=== PATIENT | male | born 1980 | race Caucasian/White ===

== ENCOUNTER 2021-07-07 20:55 | Emergency (ER) | payer BC, SELFPAY ==
--- NOTE | ~2021-07-07 | XR_ITS ---
EXAMINATION: XR chest 1V CLINICAL INFORMATION: Reason for Exam COUGH WITH HEAVY MUCOUS COMPARISON: None TECHNIQUE: XR chest 1V Tubes and lines: None Lungs and pleura: Mild pulmonary interstitial opacification concerning for possible atypical infection, no dense focal consolidation pneumonia. Heart and mediastinum: The mediastinum is within normal limits.. Bones/soft tissue: Skeletal structures included are normal for patient's age. XR/XR chest 1V IMPRESSION: Mild interstitial opacification concerning for possible atypical infection, such as viral. No lobar consolidation pneumonia.
[2021-07-07 23:16] VITALS: BP 137/77; PULSE 80; RESP 16; TEMP 36.9; O2SAT 94; BMI 47.3
[2021-07-07 23:49] LABS: COVID-19 Test Negative (Negative)
--- NOTE | 2021-07-08 00:06 | ED.GENADULT ---
HPI - General Adult General Chief complaint: General Medical Stated complaint: Flu like symptoms Time Seen by Provider: 07/08/21 00:06 History of Present Illness HPI narrative: Patient is 40 years old presented with coughing congestion upper respiratory symptoms that is ongoing for about 5 days. Patient is a smoker. Not vaccinated for COVID. Positive generalized malaise. Related Data Previous Rx's Medication Instructions Recorded doxycycline hyclate 100 mg capsule 100 mg PO BID 7 Days #14 cap 07/08/21 ibuprofen 400 mg tablet 400 mg PO Q6H PRN #20 tab 07/08/21 Allergies Allergy/AdvReac Type Severity Reaction Status Date / Time No Known Allergies Allergy Verified 07/07/21 23:20 Review of Systems Review of Systems: Positive coughing upper respiratory symptoms positive generalized malaise positive history of smoking Yes all other systems are reviewed and are negative [facility] Past Medical History Attestation statement: The following information was validated with the patient. Social History Social History Advance Directives: No Advance Directives Information Provided: No Physical Exam Vital Signs: Vital Signs: Last Vital Signs Temp 98.5 F 07/07/21 23:16 Pulse 80 07/07/21 23:16 Resp 16 07/07/21 23:16 BP 137/77 07/07/21 23:16 Pulse Ox 94 07/07/21 23:16 Body Mass Index 47.3 Appearance: Alert. Oriented X3. No acute distress. Eyes: Pupils equal, round and reactive to light. ENT: Pharynx normal. Neck: Normal inspection. Neck supple. No lymph nodes noted. No crepitus CVS: Normal heart rate and rhythm. Pulses normal. Normal S1 and S2 Respiratory: No respiratory distress. Breath sounds normal. No Wheezing. No rales Abdomen: Soft and nontender. No rigidity. No distention. good BS x4 Skin: Skin warm and dry. Normal skin color. Normal skin turgor. Extremities: No lower extremity edema. Neurovascular intact to all extremities. No Lacerations. No Rash Neuro: Oriented X 3. No motor deficit. No sensory deficit. Moving all extermities. No slurred speech Medical Decision Making MDM Narrative Medical decision making narrative: Patient well appearing not acute distress. Positive coughing upper respiratory symptoms. We will go and give antibiotics. Will go ahead and have patient follow-up on an outpatient basis. Chest x-ray shows signs of atypical pneumonia. Currently in stable condition. Lab Data Lab results reviewed: Yes I reviewed the patient's lab results. Labs: Lab Results 07/07/21 Range/Units 23:22 COVID-19 ([facility]) Negative (Negative) COVID-19 Clin Com See Note Discharge Plan Discharge Clinical Impression: Pneumonia Patient Disposition: Home, Self-Care Instructions: Pneumonia (ED) Prescriptions: New doxycycline hyclate 100 mg capsule 100 mg PO BID 7 Days Qty: 14 RF: 0 ibuprofen 400 mg tablet 400 mg PO Q6H PRN (Reason: pain) Qty: 20 RF: 0 Referrals: Physician,Nonstaff [Primary Care Provider] - 2 days
[2021-07-08 00:41] VITALS: PULSE 80; RESP 16; O2SAT 96
== END 2021-07-08 00:42 | disposition home or self-care (01) ==
PROVIDERS: Emergency Provider Emergency Medicine Emergency Medical Services
DX: J18.9 Pneumonia, unspecified organism (principal); F17.200 Nicotine dependence, unspecified, uncomplicated; Z20.822 Contact with and (suspected) exposure to COVID-19
CPT/HCPCS: 36415; 71045; 87635; 99283; 99284

== ENCOUNTER 2021-07-19 16:42 | Emergency (ER) | payer BC, SELFPAY ==
--- NOTE | ~2021-07-19 | XR_ITS ---
EXAMINATION: XR CHEST CLINICAL INFORMATION: Pain COMPARISON: None TECHNIQUE: Frontal view of the chest was obtained. FINDINGS: No significant abnormality is noted involving the heart, lungs, mediastinum, bony thorax or soft tissues. XR/XR chest 1V IMPRESSION: Unremarkable examination.
--- NOTE | ~2021-07-19 | XR_ITS ---
EXAMINATION: XR HAND, RIGHT CLINICAL INFORMATION: Pain COMPARISON: None TECHNIQUE: PA, lateral, and oblique views of the right hand. FINDINGS: The bones and soft tissues are normal. No fracture. Alignment is anatomic. Joint spaces are maintained. No erosions or soft tissue calcifications. XR/XR hand wrist RT IMPRESSION: Normal right hand.
[2021-07-19 17:01] VITALS: BP 123/63; PULSE 81; RESP 18; TEMP 36.6; O2SAT 98; BMI 45.3
[2021-07-19 17:21] LABS: COVID-19 Test Positive (Negative)
--- NOTE | 2021-07-19 17:34 | ED.GENADULT ---
HPI - General Adult General Chief complaint: General Medical Stated complaint: ?right hand broken,unable to taste sob Time Seen by Provider: 07/19/21 17:34 History of Present Illness HPI narrative: Patient complains with 2 complaints, 1st complaint is he has had an ongoing upper respiratory infection for 2 weeks He was here a week ago with an x-ray that showed possibility of atypical or viral pneumonia but a negative COVID test and was discharged He now complains that he is decreased sense of taste as well as ongoing minor cough and some feeling of shortness of breath as well Second complaint is he has right hand pain after accidentally hitting it against a radiator Related Data Previous Rx's Medication Instructions Recorded dextromethorphan HBr 15 mg/5 mL 15 mg (5 mL) PO Q8H PRN #118 ml 07/08/21 oral liquid (Tussin Cough (DM only)) doxycycline hyclate 100 mg capsule 100 mg PO BID 7 Days #14 cap 07/08/21 ibuprofen 400 mg tablet 400 mg PO Q6H PRN #20 tab 07/08/21 Allergies Allergy/AdvReac Type Severity Reaction Status Date / Time No Known Allergies Allergy Verified 07/07/21 23:20 Review of Systems Review of Systems: Positive for cough, decreased sense of taste, shortness of breath, and right hand pain Negatives are no fever no chills no dizziness or weakness no fainting no feeling faint no headache no neck pain no stiff neck no chest pain no pain with a deep breath no sore throat no abdominal pain no nausea vomiting or diarrhea no calf pain no lower leg swelling no skin rash no numbness weakness or tingling Yes all other systems are reviewed and are negative PMFSH Past Medical History Source: nursing notes reviewed Social History Social History Advance Directives: No Advance Directives Information Provided: Yes Physical Exam Vital Signs: Vital Signs: Last Vital Signs Temp 98 F 07/19/21 17:01 Pulse 81 07/19/21 17:01 Resp 18 07/19/21 17:01 BP 123/63 07/19/21 17:01 Pulse Ox 98 07/19/21 17:01 BMI result Body Mass Index 45.3 General appearance no acute distress The eyes no redness or discharge The neck is supple The chest is clear to auscultation bilateral The heart no murmur Extremities the right hand has some dorsal tenderness and mild swelling, there is some redness and swelling around the MCP joint and proximal 4th dorsal finger, no evidence of tendon limitation on extension or flexion, the skin is intact with no laceration and sensation and motor are intact Lower extremities there is no calf swelling or tenderness Skin no rash Neuro no focal motor sensory deficits Course Course Course Narrative: Patient has complaint of right hand pain with some redness and tenderness on the dorsum of the hand after banging it on a radiator, no laceration, x-ray was negative and as there was some redness and tenderness and warmth on the dorsum of the hand for possible cellulitis he is treated with Keflex Patient was COVID positive x-ray negative vital signs normal breathing comfortably and at a rate of 16 with no evidence of shortness of breath with speaking or walking Patient was given a work note for 10 days and advised to return for any worse condition Medical Decision Making Lab Data Labs: Lab Results 07/19/21 Range/Units 17:03 COVID-19 ([facility]) Positive A (Negative) COVID-19 Clin Com See Note Discharge Plan Discharge Clinical Impression: Contusion of hand, right, Cellulitis of hand, right, COVID-19 Patient Disposition: Home, Self-Care Additional Instructions: The right hand x-ray was normal with no evidence of broken bone There was redness and warmth which could be from a skin infection or possibly just from bruising but we are treating with an antibiotic Keflex for possible skin infection Return any time for increased pain and swelling, spreading redness, fever, any worse condition or any concerns If not improved or if redness is getting worse return to the ER for a recheck in 2 days If needed follow with hand doctor You tested positive for COVID but were not seriously ill at this time Be very careful around older people as it is very contagious, wear a mask Return any time for difficulty breathing any worse condition or any concerns We are putting you off work for 10 days and recommend is repeat test test to confirm that you have become negative before return to work You can use Tylenol or Motrin for pain or fever Prescriptions: No Action doxycycline hyclate 100 mg capsule 100 mg PO BID 7 Days Qty: 14 RF: 0 ibuprofen 400 mg tablet 400 mg PO Q6H PRN (Reason: pain) Qty: 20 RF: 0 Tussin Cough (DM only) 15 mg/5 mL liquid 15 mg PO Q8H PRN (Reason: cough) Qty: 118 RF: 0 Referrals: Kae Gonsales MD [Physician] - 10 days (Right hand injury) Stand Alone Forms: Work/School Release
[2021-07-19 19:08] VITALS: BP 135/71; PULSE 80; RESP 15; TEMP 37; O2SAT 95
== END 2021-07-19 19:15 | disposition home or self-care (01) ==
PROVIDERS: Emergency Provider Emergency Medicine
DX: U07.1 COVID-19 (principal); R43.9 Unspecified disturbances of smell and taste; S60.221A Contusion of right hand, initial encounter; W22.09XA Striking against other stationary object, initial encounter; L03.113 Cellulitis of right upper limb; Y93.9 Activity, unspecified; Y92.039 Unspecified place in apartment as the place of occurrence of the external cause; Y99.9 Unspecified external cause status
CPT/HCPCS: 36415; 71045; 73110; 73130; 87635; 99284

== ENCOUNTER 2021-08-04 00:17 | Emergency (ER) | payer BC, SELFPAY ==
--- NOTE | ~2021-08-04 | XR_ITS ---
EXAMINATION: XR CHEST CLINICAL INFORMATION: Cough/shortness of breath. COMPARISON: Chest radiograph dated from 07/19/2021. TECHNIQUE: PA view of the chest was obtained. FINDINGS: No significant abnormality is noted involving the heart, lungs, mediastinum, bony thorax or soft tissues. XR/XR chest 1V IMPRESSION: Unremarkable examination.
[2021-08-04 00:32] VITALS: BP 156/75; PULSE 88; RESP 20; TEMP 36.9; O2SAT 96; BMI 45.1
[2021-08-04 01:15] LABS: COVID-19 Test Negative (Negative)
--- NOTE | 2021-08-04 01:55 | ED_ITS ---
HPI - URI/Sore Throat General Chief Complaint: Upper Respiratory Symptoms Stated Complaint: difficulty breathing; tested covid+ two weeks ago Time Seen by Provider: 08/04/21 01:54 Source: patient Mode of arrival: ambulatory Limitations: no limitations History of Present Illness HPI Narrative: Patient was COVID positive on July 19 patient had been sick one week prior, patient was discharged home. Over the past few days patient having some shortness of breath, denies chest pain, he was not wheezing. MD elicited complaint: cough Onset (ago): week(s) Consistency: constant Severity: mild Associated symptoms: cough and shortness of breath Treatments prior to arrival: none Related Data Previous Rx's Medication Instructions Recorded dextromethorphan HBr 15 mg/5 mL 15 mg (5 mL) PO Q8H PRN #118 ml 07/08/21 oral liquid (Tussin Cough (DM only)) doxycycline hyclate 100 mg capsule 100 mg PO BID 7 Days #14 cap 07/08/21 ibuprofen 400 mg tablet 400 mg PO Q6H PRN #20 tab 07/08/21 albuterol sulfate 90 mcg/actuation 2 puff INHALATION Q4-6H PRN #8.5 g 07/19/21 aerosol inhaler cephalexin 500 mg tablet 500 mg PO QID 7 Days #28 tab 07/19/21 prednisone 20 mg tablet 60 mg PO DAILY #12 tab 08/04/21 Allergies Allergy/AdvReac Type Severity Reaction Status Date / Time No Known Allergies Allergy Verified 08/04/21 00:35 Review of Systems Constitutional: Constitutional: Reports no additional constitutional complaints Eyes: Eyes: Reports no additional eye complaints ENT: Denies dizziness Cardiovascular: Cardiovascular: Reports no additional cardiovascular complaints Respiratory: Respiratory: Reports as per HPI Gastrointestinal: Gastrointestinal: Reports no additional gastrointestinal complaints Musculoskeletal: Musculoskeletal: Reports no additional musculoskeletal complaints Integumentary/Breasts: Skin/Breast: Denies rash Neurologic: Reports system reviewed and no additional complaints, except as documented, Denies dizziness and Denies Sensory deficit (Neuro) Psychiatric: Psychiatric: Denies anxiety PMFSH Social History Social History Advance Directives: No Physical Exam Vital Signs: Vital Signs: Last Vital Signs Temp 98.5 F 08/04/21 00:32 Pulse 88 12/18/21 00:32 Resp 20 08/04/21 00:32 BP 156/75 H 08/04/21 00:32 Pulse Ox 96 08/04/21 00:32 BMI result Body Mass Index 45.1 Const: Other: obese male resting comfortably Nutritional Appearance: obese Orientation/consciousness: oriented to person and patient oriented x3 Limitations: no limitations HENMT: Head: Yes normal to inspection Ears: external ears normal General nose exam: Normal external nose present Mouth: Normal oral and palatal mucosa present and oropharynx normal Throat: Yes posterior oropharynx normal Eyes: General: appearance normal, both eyes and all related structures Neck: Other: supple Neck: Yes normal visual inspection Chest: Chest palpation & inspection: normal inspection of the chest Resp: Other: diffuse wheezing Cardio: Jugular venous distension: no JVD Rate: regular rate Rhythm: regular rhythm Heart sounds: S1 normal heart sound present and S2 normal he art sound present GI: Inspection: Yes normal to inspection Palpation (GI): Soft to palpation, nontender and No hepatosplenomegaly present Auscultation: normal bowel sounds : General: Yes no CVA tenderness Back/Spine/Pelvis: Back: no CVA tenderness Skin: General skin exam: no rashes or lesions noted Neuro: General: oriented to person and patient oriented x3 Cranial nerves: Yes CN's II-XII intact bilaterally Motor exam (neuro): 5/5 motor strength present throughout Sensory Exam: No Sensory deficit (Neuro) Extrem: General: Yes normal to inspection Psych: Appearance: grossly normal Course Reevaluation(s) Reevaluation #1: patient with normal xray, with diffuse wheezing and history of smoking with place on prednisone. At this time he is testing negative for COVID Time: 02:02 MDM - URI/Sore Throat Lab Data Labs: Lab Results 08/04/21 Range/Units 00:51 COVID-19 ([facility]) Negative (Negative) COVID-19 Clin Com See Note Imaging Data Chest x-ray: Radiologist's impression: FINDINGS: No significant abnormality is noted involving the heart, lungs, mediastinum, bony thorax or soft tissues. XR/XR chest 1V IMPRESSION: Unremarkable examination. ? Discharge Plan Discharge Clinical Impression: Acute bronchospasm Patient Disposition: Home, Self-Care Instructions: Bronchospasm (ED) Prescriptions: New prednisone 20 mg tablet 60 mg PO DAILY Qty: 12 RF: 0 No Action cephalexin 500 mg tablet 500 mg PO QID 7 Days Qty: 28 RF: 0 albuterol sulfate 90 mcg/actuation HFA aerosol inhaler 2 puff inhalation Q4-6H PRN (Reason: shortness of breath or wheezing) Qty: 8.5 RF: 0 doxycycline hyclate 100 mg capsule 100 mg PO BID 7 Days Qty: 14 RF: 0 ibuprofen 400 mg tablet 400 mg PO Q6H PRN (Reason: pain) Qty: 20 RF: 0 Tussin Cough (DM only) 15 mg/5 mL liquid 15 mg PO Q8H PRN (Reason: cough) Qty: 118 RF: 0 Referrals: Physician,None [Primary Care Provider] - 1 week
[2021-08-04] MEDS: predniSONE 20 MG TABLET 60 MG PO (02:14)
[2021-08-04] MEDS: Albuterol Sulfate 90 MCG 8 GM INHALER 4 PUFF INHALE (02:15)
== END 2021-08-04 02:16 | disposition home or self-care (01) ==
PROVIDERS: Emergency Provider Emergency Medicine
DX: J98.01 Acute bronchospasm (principal); Z20.822 Contact with and (suspected) exposure to COVID-19
CPT/HCPCS: 36415; 71045; 87635; 99283; 99284